=== PATIENT | female | born 1975 | race Two or more races ===

== ENCOUNTER 2021-03-20 00:41 | Emergency (ER) | payer OTHER ==
--- NOTE | 2021-03-20 01:25 | EDM.PDOC ---
ED HPI GENERAL MEDICAL PROBLEM - General Chief Complaint: General Stated Complaint: HIGH BLOOD PRESSURE Time Seen by Provider: 03/20/21 01:00 Source of Information: Reports: Patient History Limitations: Reports: No Limitations - History of Present Illness INITIAL COMMENTS - FREE TEXT/NARRATIVE: c/o palpitations pt states she has had inc'd HR and inc'd BP for past 2w she saw Azalea Rangel in clinic 7-10d ago and was begun on losartan 50 mg 1 tab daily she previously was put on metformin by her acoustical installer for wt loss and inc'd glucose nonsmoker has FH of htn with mom dx age 46 and sister at age 28, MGF from [place] pt says she went to bed at 11p, awoke at midnight with palpitations and had HR 122 with BP 156/99 this AM she had BP 122/93 with HR 122 yesterday she had BP 116/76 with HR 103 she had been on appetite suppresant which has been stopped labs and EKG in office 7-10d ago wnl, scheduled to have a Holter placed at clinic today SH: 4 sons, 3 are at home (ages 22, 15, 13), homemaker, had previously worked at a [employer] no CP - Related Data Allergies Allergy/AdvReac Type Severity Reaction Status Date / Time tetracycline Allergy Rash Verified 03/20/21 00:51 Home Meds: Home Meds Cetirizine [ZyrTEC] 10 mg PO DAILY 03/20/21 [History] Losartan Potassium 50 mg PO DAILY 03/20/21 [History] metFORMIN [Glucophage XR] 500 mg PO BID 03/20/21 [History] Past Medical History Cardiovascular History: Reports: Hypertension, Other (See Below) Other Cardiovascular History: schedule to have holter monitor placed on 03/21/21 Social & Family History - Tobacco Use Tobacco Use Status *Q: Never Tobacco User - Caffeine Use Caffeine Use: Reports: Tea Other Caffeine Use: herbalife 1 drink per day - Recreational Drug Use Recreational Drug Use: No ED ROS GENERAL - Review of Systems Review Of Systems: See Below Constitutional: Reports: No Symptoms HEENT: Reports: No Symptoms Respiratory: Reports: No Symptoms Cardiovascular: Reports: Palpitations. Denies: Chest Pain Endocrine: Reports: No Symptoms GI/Abdominal: Reports: No Symptoms : Reports: No Symptoms Musculoskeletal: Reports: No Symptoms Skin: Reports: No Symptoms Neurological: Reports: No Symptoms Psychiatric: Reports: No Symptoms Hematologic/Lymphatic: Reports: No Symptoms Immunologic: Reports: No Symptoms ED EXAM, GENERAL - Physical Exam Exam: See Below Exam Limited By: No Limitations General Appearance: Alert, WD/WN, Anxious Eye Exam: Bilateral Eye: PERRL Ears: Hearing Grossly Normal Nose: Normal Inspection, Normal Mucosa, No Blood Throat/Mouth: Normal Inspection, Normal Lips, Normal Teeth, Normal Voice, No Airway Compromise Head: Atraumatic, Normocephalic Neck: Normal Inspection, Supple, Non-Tender, Full Range of Motion, Other (thyroid wnl, no nodules). No: Lymphadenopathy (R), Lymphadenopathy (L), Thyromegaly Respiratory/Chest: No Respiratory Distress, Lungs Clear, Normal Breath Sounds, No Accessory Muscle Use, Chest Non-Tender Cardiovascular: Other (regular, HR 120 on my exam). No: No Edema, No Gallop, No Murmur GI/Abdominal: Soft, Non-Tender Back Exam: Normal Inspection, Full Range of Motion, NT Extremities: Normal Inspection, Normal Range of Motion, Non-Tender, No Pedal Edema Neurological: Alert, Oriented, CN II-XII Intact, Normal Cognition, No Motor/Sensory Deficits Psychiatric: Anxious Skin Exam: Warm, Dry, Intact, Normal Color, No Rash Lymphatic: No Adenopathy Course - Vital Signs Last Recorded V/S: Last Vital Signs Temp 36.5 C 03/20/21 00:53 Pulse 93 03/20/21 02:04 Resp 18 03/20/21 00:53 BP 149/88 H 03/20/21 02:04 Pulse Ox 100 03/20/21 00:53 - Orders/Labs/Meds Orders: Active Orders 24 hr Category Date Time Status EKG Documentation Completion [RC] ASDIRECTED Care 03/20/21 01:19 Ordered EKG 12 Lead [EK] Routine Ther 03/20/21 01:19 Ordered Labs: Laboratory Tests 03/20/21 03/20/21 03/20/21 Range/Units 01:28 01:28 01:28 WBC 9.3 (3.0-10.3) x10-3/uL RBC 4.39 (3.60-5.20) x10(6)uL Hgb 13.7 (11.4-15.5) g/dL Hct 39.9 (34.2-48.2) % MCV 90.8 (76.7-100.5) fL MCH 31.2 (23.9-33.9) pg MCHC 34.3 (31.9-34.8) g/dL RDW 11.9 L (12.3-16.5) % Plt Count 272 (151-488) x10(3)uL MPV 8.1 (7.1-12.4) fL Neut % (Auto) 54.3 (30.8-76.2) % Lymph % (Auto) 33.3 (18.4-52.1) % [place] % (Auto) 7.4 (4.4-15.7) % Eos % (Auto) 4.3 (0.6-8.1) % Baso % (Auto) 0.7 (0.2-1.5) % Neut # (Auto) 5.1 (1.5-6.3) x10-3/uL Lymph # (Auto) 3.1 (1.0-4.4) x10-3/uL [place] # (Auto) 0.7 (0.3-1.0) x10-3/uL Eos # (Auto) 0.4 (0.0-0.8) x10-3/uL Baso # (Auto) 0.1 (0.0-0.1) x10-3/uL Sodium 141 (135-145) mmol/L Potassium 3.6 (3.5-5.3) mmol/L Chloride 104 (100-110) mmol/L Carbon Dioxide 28 (21-32) mmol/L BUN 13 (7-18) mg/dL Creatinine 0.9 (0.55-1.02) mg/dL Est Cr Clr Drug Dosing TNP Estimated GFR (MDRD) > 60 (>60) BUN/Creatinine Ratio 14.4 (9-20) Glucose 102 (80-116) mg/dL Calcium 9.0 (8.6-10.2) mg/dL Magnesium (1.8-2.5) mg/dL Total Bilirubin 1.2 (0.1-1.3) mg/dL AST 21 (5-25) IU/L ALT 31 (12-36) U/L Alkaline Phosphatase 91 (56-112) IU/L Troponin I < 4.0 L (4.0-60.3) pg/mL C-Reactive Protein 0.4 L (0.5-0.9) mg/dL NT-Pro-B Natriuret Pep (<=125) pg/mL Total Protein 7.2 (6.0-8.0) g/dL Albumin 3.6 (3.5-5.2) g/dL Globulin 3.6 g/dL Albumin/Globulin Ratio 1.0 TSH, Ultra Sensitive 4.37 H (0.36-3.74) IU/mL 03/20/21 03/20/21 Range/Units 01:28 01:28 WBC (3.0-10.3) x10-3/uL RBC (3.60-5.20) x10(6)uL Hgb (11.4-15.5) g/dL Hct (34.2-48.2) % MCV (76.7-100.5) fL MCH (23.9-33.9) pg MCHC (31.9-34.8) g/dL RDW (12.3-16.5) % Plt Count (151-488) x10(3)uL MPV (7.1-12.4) fL Neut % (Auto) (30.8-76.2) % Lymph % (Auto) (18.4-52.1) % [place] % (Auto) (4.4-15.7) % Eos % (Auto) (0.6-8.1) % Baso % (Auto) (0.2-1.5) % Neut # (Auto) (1.5-6.3) x10-3/uL Lymph # (Auto) (1.0-4.4) x10-3/uL [place] # (Auto) (0.3-1.0) x10-3/uL Eos # (Auto) (0.0-0.8) x10-3/uL Baso # (Auto) (0.0-0.1) x10-3/uL Sodium (135-145) mmol/L Potassium (3.5-5.3) mmol/L Chloride (100-110) mmol/L Carbon Dioxide (21-32) mmol/L BUN (7-18) mg/dL Creatinine (0.55-1.02) mg/dL Est Cr Clr Drug Dosing Estimated GFR (MDRD) (>60) BUN/Creatinine Ratio (9-20) Glucose (80-116) mg/dL Calcium (8.6-10.2) mg/dL Magnesium 2.0 (1.8-2.5) mg/dL Total Bilirubin (0.1-1.3) mg/dL AST (5-25) IU/L ALT (12-36) U/L Alkaline Phosphatase (56-112) IU/L Troponin I (4.0-60.3) pg/mL C-Reactive Protein (0.5-0.9) mg/dL NT-Pro-B Natriuret Pep 16 (<=125) pg/mL Total Protein (6.0-8.0) g/dL Albumin (3.5-5.2) g/dL Globulin g/dL Albumin/Globulin Ratio TSH, Ultra Sensitive (0.36-3.74) IU/mL - Re-Assessments/Exams Free Text/Narrative Re-Assessment/Exam: 03/20/21 01:26 pt quite anxious on arrival, no hyperventilation, did become more calm with discussion and explanations regarding BP and BP meds will recheck labs and EKG 03/20/21 02:37 labs and EKG unremarkable mild inc'd HR and BP c/w stress and anxiety no clinical evidence of CV or systemic illness Departure - Departure Time of Disposition: 02:35 Disposition: Home, Self-Care 01 Condition: Good Clinical Impression: Palpitations - Discharge Information *PRESCRIPTION DRUG MONITORING PROGRAM REVIEWED*: Not Applicable *COPY OF PRESCRIPTION DRUG MONITORING REPORT IN PATIENT CHARLES: Not Applicable Instructions: Palpitations Referrals: Azalea Mireles NP [Primary Care Provider] - Forms: ED Department Discharge Additional Instructions: Your tests, including both heart proteins, are within normal limits. Continue your losartan 50 mg one tab daily. Get your Holter monitor this morning, as scheduled. See Azalea Rangel in 4 days for followup, as scheduled. Sepsis Event Note (ED) - Evaluation Sepsis Screening Result: No Definite Risk - Focused Exam Vital Signs: Vital Signs Temp Pulse Resp BP Pulse Ox 03/20/21 02:04 93 149/88 H 03/20/21 00:53 36.5 C 102 H 18 146/97 H 100 - My Orders Last 24 Hours: My Active Orders 03/20/21 01:19 EKG Documentation Completion [RC] ASDIRECTED EKG 12 Lead [EK] Routine - Assessment/Plan Last 24 Hours: My Active Orders 03/20/21 01:19 EKG Documentation Completion [RC] ASDIRECTED EKG 12 Lead [EK] Routine
== END 2021-03-20 02:40 | disposition home or self-care (01) ==
LOC: FB.ED 00:41
DX: R00.2 Palpitations (principal); I10 Essential (primary) hypertension; Z79.899 Other long term (current) drug therapy; Z88.1 Allergy status to other antibiotic agents
CPT/HCPCS: 36415; 80053; 83735; 83880; 84443; 84484; 85025; 86140; 93005; 99285-25